=== PATIENT | male | born 1935 | race Caucasian/White ===

== ENCOUNTER 2018-08-10 07:24 | Outpatient (CLI) | payer MEDICARE, BC ==
[~2018-08-10] VITALS: Ht 177.8 cm; Wt 91.8 kg
--- NOTE | ~2018-08-10 | HEMODYNAMI ---
PATIENT:DIONY APARICIO MEDICAL RECORD: [id number] : 37 LOCATION:[facility] ADMISSION DATE: 08/10/18 Generatedon:08/10/201810:22 Patient name: DIONY APARICIO Patient #: [id number] SSN: DO B: 1935 Date of study: 08/10/2018 Page: Of Hemodynamic Procedure Report Patient Data Patient Demographics Procedure consent was obtained First Name: DIONY Gender: Male Last Name: MARKUS : 1935 Middle Initial: M Age: 82 year(s) Patient #: [id number] Race: Additional ID: [id number] Contact details Address: [address] [place] [address] State: [place] City: [place] Zip code: [address] Past Medical History Allergies: No known allergies Admission Admission Data Admission Date: 08/10/2018 Admission Time: 7:24 Procedure Procedure Types Cath Procedure Diagnostic Procedure LHC LHC w/Coronaries w/Grafts Procedure Description Procedure Date Procedure Date: 08/10/2018 Procedure Start Time: 10:12 Procedure End Time: 10:21 Procedure Staff Name Function Neal Rosenbaum MD Performing Physician Kelin Chao RT Monitor oJnel Davis RT Scrub Kingston Pineda RN Nurse Procedure Data Cath Procedure Fluoroscopy Diagnostic fluoroscopy Total fluoroscopy Time: 1.1 time: 1.1 min min Diagnostic fluoroscopy Total fluoroscopy dose: 204 dose: 204 mGy mGy Contrast Material Contrast Material Type Amount (ml) Isovue 300 51 Entry Location Entry Primary Successful Side Size Upsize Upsize Entry Closure Succes sful Closure Location (Fr) 1 (Fr) 2 (Fr) Remarks Device Remarks Femoral Right 5 Fr Exoseal artery Estimated blood loss: 5 ml Diagnostic catheters Device Type Used For End Catheter Placement MULTIPACK Pigtail 5 Fr LV Angiography catheter MULTIPACK JL 4.0 5Fr Left Coronary catheter Angiography MULTIPACK 3DRC 5Fr Right Coronary catheter Angiography Procedure Complications No complications Procedure Medications Medication Administration Route Dosage 0.9% NaCl I.V. 100 ml/hr Oxygen etCO2 Nasal cannula 2 l/min Heparin Flush Bag added to field 2 bags (1000units/500ml NS) Lidocaine 2% added to field 20 Versed I.V. 2 mg Fentanyl I.V. 100 mcg Hemodynamics Rest Heart Rate: 0 (bpm) Snapshots Pre Cath Intra NCS Post Cath Vital Signs Time Heart Resp SPO2 etCO2 NIBP Rhythm Pain Sedation Rate (ipm) (%) (mmHg) (mmHg) Status Level (bpm) 9:56:25 64 16 94 0 123/74(92) NSR 0 (11) 10(A) , No pain 10:00:38 65 12 97 0 116/68(91) NSR 0 (11) 10(A) , No pain 10:04:48 66 13 96 30.8 107/65(86) NSR 0 (11) 10(A) , No pain 10:08:58 67 12 95 42 106/63(85) NSR 0 (11) 10(A) , No pain 10:13:08 65 14 95 102/66(88) NSR 0 (11) 9(A) , No pain 10:17:16 69 14 94 38.2 104/64(78) NSR 0 (11) 9(A) , No pain 10:21:22 73 11 93 43.5 92/62(86) NSR 0 (11) 9(A) , No pain Medications Time Medication Route Dose Verified Delivered Reason Notes Eff ectiveness by by 10:02:49 0.9% NaCl I.V. 100 Guy Guy Per ml/hr Eddie Morgan RN physician RN 10:03:02 Oxygen etCO2 2 Guy Guy Per Nasal l/min Eddie Morgan RN physician cannula RN 10:03:13 Heparin Flush added 2 Guy Guy used for Bag to bags Eddie Morgan flosser (1000units/500ml field RN NS) 10:03:24 Lidocaine 2% added 20ml Guy Singletony for local to vial Eddie Morgan RN anesthetic field RN 10:12:01 Versed I.V. 2 mg Kingston Kingston for Lorigan Lorigan sedation RN RN 10:12:11 Fentanyl I.V. 100 Kingston Kingston for mcg Lorigan Lorigan sedation RN nursing technician Log Time Note 9:35:43 Jonel Davis RT(R) sent for patient. Start room use. 9:42:44 Time tracking: Regular hours (M-F 7:00 - 5:00) 9:42:48 Plan of Care:Hemodynamics will remain stable., Cardiac rhythm will remain stable., Comfort level will be maintained., Respiratory function will remain adequate., Patient/ family verbilizes understanding of procedure., Procedure tolerated without complication., Recovers from procedure without complications.. 9:49:02 Procedure type changed to Cath procedure, Diagnostic procedure, LHC, LHC w/Coronaries w/Grafts 9:51:16 Patient received from Pre/Post Procedure Room to CCL 3 Alert and oriented. Tansferred to table in Supine position. 9:51:17 Warm blankets applied, and keshawn hugger turned on for patient comfort. 9:51:17 Correct patient and procedure confirmed by team. 9:51:18 Signed procedure consent form obtained from patient. 9:51:19 ECG and BP/O2 sat monitors applied to patient. 9:51:20 Full Disclosure recording started 9:55:24 Vital chart was started 10:02:22 Baseline sample Acquired. 10:02:49 0.9% NaCl 100 ml/hr I.V. was administered by Guy Morgan RN; Per physician; 10:02:51 Rhythm: sinus rhythm 10:03:02 Oxygen 2 l/min etCO2 Nasal cannula was administered by Guy Morgan RN; Per physician; 10:03:05 H&P Date Dictated: 07/15/2018 Within 30 days and on chart., H&P Addendum completed by physician on day of procedure. (MUST COMPLETE FOR ALL OUTPATIENTS). 10:03:06 Pre-procedure instructions explained to patient. 10:03:07 Pre-op teaching completed and patient verbalized understanding. 10:03:09 Family in patients room. 10:03:10 Patient NPO since Midnight. 10:03:13 Heparin Flush Bag (1000units/500ml NS) 2 bags added to field was administered by Guy Morgan RN; used for procedure; 10:03:18 Patient allergic to No known allergies 10:03:20 Is the patient allergic to Iodine/contrast media? No. 10:03:24 Lidocaine 2% 20ml vial added to field was administered by Guy Morgan RN; for local anesthetic; 10:04:02 Is patient on blood thinner?Yes 10:04:04 ACC The patient was administered the following blood thiners within the last 24 hours: ACCPlavix 10:04:16 Previous problem with sedation/anesthesia? No ? 10:04:17 Snore? Yes 10:04:21 Patient diabetic? Yes. 10:04:22 If diabetic: On Metformin? Yes 10:04:25 If on Metformin: Last Dose? 08/08/2018 10:04:27 Sleep apnea? No 10:04:28 Deviated septum? No 10:04:28 Opens mouth fully? Yes 10:04:29 Sticks out tongue? Yes 10:04:31 Airway obstruction? No ? 10:04:33 Dentures? No ? 10:04:37 Pre procedure: right dorsailis pedis pulse 2+ Normal; easily identifiable; not easily obliterated 10:04:40 Patient pain scale 0/10 ?. 10:04:46 IV patent on arrival in left hand with 0.9% NaCl at O. 10:04:51 Lab results completed and on chart. 10:04:54 Right groin area was prepped with chlora-prep and draped in sterile fashion 10:04:55 Alarms reviewed by R. N. 10:04:55 Sharps counted by scrub and verified by R.N. 10:04:59 Use device set Femoral Dx 10:05:00 ACIST Syringe (51427) opened to sterile field. 10:05:01 Bag Decanter (2002S) opened to sterile field. 10:05:01 Medline Cath Pack ([id number]) opened to sterile field. 10:05:02 DIAGNOSTIC WIRE .035 260cm J wire (539131) opened to sterile field. 10:05:03 ACIST Hand Control (03896) opened to sterile field. 10:05:03 ACIST Manifold (89263) opened to sterile field. 10:05:04 DIAGNOSTIC Multipack 5Fr catheter set ([id number]) opened to sterile field. 10:05:05 Tegaderm 4 x 4 (1626W) opened to sterile field. 10:05:06 SHEATH Prelude 5Fr 0.035 ([id number]-[id number]) opened to sterile field. 10:06:32 Final Timeout: patient, procedure, and site verified with staff and physician. All members of the team are in agreement. 10:06:34 Right groin site verified by team. 10:06:36 Physical assessment completed. ASA score P 2 - A patient with mild systemic disease as per Neal Rosenbaum MD. 10:06:38 Sedation plan: IV Moderate Sedation Medication:Versed, Fentanyl 10:07:02 Zero performed for pressure channel P1 10:07:14 Zero performed for pressure channel P1 10:12:01 Versed 2 mg I.V. was administered by Kingston Pineda RN; for sedation; 10:12:11 Fentanyl 100 mcg I.V. was administered by Kingston Pineda RN; for sedation; 10:12:46 Procedure started. 10:12:53 Local anesthetic to right femoral artery with Lidocaine 2% by Neal Rosenbaum MD.INITIAL ACCESS ONLY 10:13:20 A 5 Fr sheath was inserted into the Right Femoral artery 10:13:56 A MULTIPACK Pigtail 5 Fr catheter was advanced over the wire and used for LV Angiography. 10:14:12 LV gram done using CHAVIRA 10:14:13 LV hemodynamics recorded. 10:14:15 Injector settings: Ml/sec: 10, Volume: 20, 10:14:20 EF : 30 % 10:14:21 Catheter removed. 10:14:30 A MULTIPACK JL 4.0 5Fr catheter was advanced over the wire and used for Left Coronary Angiography. 10:15:55 Catheter removed. 10:16:02 A MULTIPACK 3DRC 5Fr catheter was advanced over the wire and used for Right Coronary Angiography. 10:16:35 Catheter removed. 10:17:32 Sheath removed intact; hemostasis achieved with Exoseal to the Right Femoral artery. 10:17:34 Procedure ended.(Physican Out) 10:17:46 Fluoroscopy time 01.10 minutes. 10:17:50 Flurop Dose total: 204 10:17:50 Fluoroscopy dose: 204 mGy 10:17:53 Contrast amount:Isovue 300 51ml. 10:17:55 Sharps counted by scrub and verified by R.N. 10:18:01 Insertion/operative site no bleeding no hematoma. 10:18:04 Post-op/insertion site Right Femoral artery dressed using a 4 x 4 and Tegaderm. 10:18:07 Post right femoral artery:stable, clean and dry 10:18:09 Post Procedure Pulses reassessed and unchanged 10:18:11 Post-procedure physical assessment completed. ASA score P 2 - A patient with mild systemic disease as per Neal Rosenbaum MD. 10:18:14 Post procedure rhythm: unchanged. 10:18:26 Estimated blood loss: 5 ml 10:18:28 Post procedure instruction explained to patient.Patient verbalizes understanding. 10:18:28 Patient needs reinforcement of post procedure teaching. 10:18:51 Procedure Complication : No complications 10:18:56 See physician's report for complete and final results. 10:19:07 EXOSEAL 5Fr (EX500) opened to sterile field. 10:19:18 Procedure and supply charges have been captured, reviewed, submitted and are correct. 10:21:40 Vital chart was stopped 10:21:43 Report given to Pre/Post Procedure Room. 10:21:46 Patient transfered to Pre/Post Procedure Room with Stretcher. 10:21:48 Procedure ended. 10:21:48 Full Disclosure recording stopped 10:21:52 End room use (Document Last) Device Usage Item Name Manufacture Quantity Catalog Number Hospital Part Current M inimal Lot# / Charge Number Stock Stock Serial# Code ACIST Syringe Acist 1 08864 [id number] 048389 [id number] 2 0 (60433) [employer] Bag Decanter Microtek 1 2001S [id number] 51620 017552 5 (2001S) Medical Inc. Medline Cath Cardinal 1 [id number] 807646 11715 182876 5 Pack Health ([id number]) DIAGNOSTIC WIRE St Kevin 1 523403 076651 820116 769703 3 0 .035 260cm J wire (896885) ACIST Hand Acist 1 66280 071293 273875 392097 5 Control (22476) [employer] ACIST Manifold Acist 1 77643 918970 600437 523557 5 (12564) [employer] DIAGNOSTIC Cardinal 1 AS6675 375249 35530 083107 3 0 Multipack 5Fr Health catheter set ([id number]) Tegaderm 4 x 4 3M 1 1626W 955983 270739 455023 5 (1626W) SHEATH Prelude Merit 1 [id number]-[id number] 281852 634720 452644 5 5Fr 0.035 Medical ([id number]-[id number]) MULTIPACK Cardinal 1 [id number] 5 Pigtail 5 Fr Health catheter MULTIPACK JL Cardinal 1 [id number] 5 4.0 5Fr Health catheter MULTIPACK 3DRC Cardinal 1 [id number] 5 5Fr catheter Health EXOSEAL 5Fr Cardinal 1 EX500 553737 700302 865092 1 0 (EX500) Health Signature Audit [place] Stage Time Signature Unsigned Intra-Procedure 08/10/2018 Kelin 10:22:12 AM Counts RT(R) Signatures Monitor : Kelin Signature : Counts RT Date : Time : [place] [id number] [place] [id number]
--- NOTE | ~2018-08-10 | OP ---
PATIENT NAME: DIONY APARICIO MEDICAL RECORD: [id number] :37 LOCATION:[facility] ADMISSION DATE: SURGEON: CHACHA PURCELL MD DATE OF OPERATION: 08/10/2018 PROCEDURES: 1. Left heart catheterization. 2. Selective coronary angiography. 3. Left ventriculogram. INDICATION: Chest pain compatible with angina. PROCEDURE IN DETAIL: After informed consent was obtained and after a detailed description of risks, benefits as well as alternative therapies, the patient elected to proceed with angiogram and heart catheterization. The right femoral area was prepped and draped in normal sterile fashion. Right femoral artery was cannulated via modified Seldinger technique with placement of 5-Rwand[place] sheath. All catheters exchanged through this sheath. FINDINGS: Left ventriculogram was performed in standard 30-degree CHAVIRA view, reveals global hypokinesis throughout all segments. Overall ejection fraction in the 30% range. SELECTIVE CORONARY ANGIOGRAPHY: 1. Left main is with no significant angiographic disease. 2. Left anterior descending has previously placed stents, these are widely patent with no significant restenosis. No disease elsewise at the LAD or its branches. 3. The left circumflex is chronically totally occluded. 4. The right coronary artery has previously placed stents, these are widely patent with no significant restenosis. No disease elsewise. 5. He has had bypass, all bypass grafts are closed. 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 Continue medical management of the coronary artery disease and cardiac risk factors. TRANSINT:[id number] Voice Confirmation ID: [id number] DOCUMENT ID: [id number] CHACHA PURCELL MD at 1729 CC: [id number] DICTATION DATE: 08/10/18 1021 SCHOOL PHOTOGRAPH EDITOR: 08/10/18 1048 DEP CLI 08/10/18 [place] [id number] [place] [id number]
[~2018-08-10 07:24] MED LIST: ASPIRIN81 MG PO; ATROVENT 0.06%15 ML NS; CLOBEX59 ML TP; GLIPIZIDE10 MG PO; GLUCOPHAGE500 MG PO; ISOSORBIDE MONO30 M1 PO; NITROSTAT0.4 MG SL; NORVASC5 MG PO; PLAVIX75 MG PO; RELAFEN500 MG PO; TENORMIN50 MG PO; ZOCOR20 MG PO
[2018-08-10] MEDS ORDERED: ZOVIRAX400 MG PO (08:45)
[2018-08-10 08:51] VITALS: BP 113/59; Ht 177.8 cm; Wt 91.8 kg
[2018-08-10 09:38] LABS: BASOPHILS 0.5 % (0-2); HEMATOCRIT 41.7 % (42.0-54.0); HEMOGLOBIN 14.5 g/dL (13.5-17.5); IMMATURE GRANULOCYTES 0.5 % (0-5); LYMPHOCYTES 20.5 % (15-50); MCH 33.2 pg (26.0-34.0); MCHC 34.8 g/dL (31.0-37.0); MCV 95.4 fL (80.0-100.0); MEAN PLATELET VOLUME 9.8 fL (7.4-10.4); MONOCYTES 8.7 % (2-11); NEUTROPHILS 67.8 % (40-80); PLATELET COUNT 157 10x3/uL (130-400); RBC 4.37 10x6/uL (4.20-6.10); RDW 13.5 % (11.5-14.5); WBC 9.9 10x3/uL (4.8-10.8)
[2018-08-10 09:47] LABS: ANION GAP 15.5 mmol/L (8-16); CARBON DIOXIDE 21.4 mmol/L (21.0-32.0); CREATININE - SERUM 1.8 mg/dL (0.6-1.3); POTASSIUM - SERUM 4.9 mmol/L (3.5-5.1)
== END 2018-08-10 12:35 | disposition home or self-care (01) ==
LOC: D.CATH 07:24
PROVIDERS: Internal Medicine Interventional Cardiology
DX: I25.119 Atherosclerotic heart disease of native coronary artery with unspecified angina pectoris (principal); I25.82 Chronic total occlusion of coronary artery; I25.719 Atherosclerosis of autologous vein coronary artery bypass graft(s) with unspecified angina pectoris; Z95.5 Presence of coronary angioplasty implant and graft; Z01.812 Encounter for preprocedural laboratory examination